=== PATIENT | female | born 1960 | race Caucasian/White ===

== ENCOUNTER → 2017-01-28 | Outpatient (CLI) | payer MEDICAID ==
[~2017-01-28] MED LIST: ACETAMINOPHEN &1 TA1 PO; CAMBIA50 MG PO; HYDROCODONE/ACE1 TA5 PO; IBUPROFEN600 MG; LASIX 20MG. TAB20 MG PO; LEVOTHYROXIN0.125 MG PO; NORCO 325 MG-101 TAB PO; REQUIP 1 MG TABL1 MG FT; TRAMADOL 50MG T50 MG PO; VIMOVO 20 MG-501 TCP PO
[2017-01-28 16:12] LABS: AMPHETAMINES/METAMPHETAMINES NEGATIVE ng/mL (<1000)
== END ==
LOC: LAB 12:58
PROVIDERS: Nurse Anesthetist, Certified Registered
DX: Z79.899 Other long term (current) drug therapy (principal)